=== PATIENT | male | born 1935 | race Caucasian/White ===

== ENCOUNTER 2018-11-23 09:05 | Inpatient (IN) ==
[2018-11-23] MEDS ORDERED: NS 1000 ML 1,000 ML ONE ×3 (09:08→12:25)
[2018-11-23] MEDS ORDERED: D50W ABBOJECT SYR IV ONE (09:16)
[2018-11-23] MEDS ORDERED: NS 1000 ML 1,000 ML IV ONE ×2 (09:16→09:20)
--- NOTE | 2018-11-23 09:26 | DR.GENAD ---
HPI - Complaint/Symptoms Chief Complaint Doctors Comments: Patient called family member stating he was feeling weak and has problem walking with shoulder pain. Family member states he stays in a trailer next to them and he has seen two cancer doctors this week and has been cleared to start his chemotherapy for lung cancer. States he has a cancer in his right upper lobe and no where else shows cancer presently. States he is a patient of Dr. Ray and is usually on two liters of oxygen at home but he puts it on 3 liters at home. Family member states she gave him a breathing treatment before coming to the emergency room. Patient denies chest pain cold or cough. Family states his heart rate is usually around 60 and he was taking Metropolol 50mg but his blood pressure was to low and they placed him on 12.5mg and she gave all his medicines this morning.. Patient is complaining of shoulder pain. Patient's daughter states he just finished prednisone dose pack yesterday. He was in the hospital in [place] and they found a pneumonia on the left side of his lungs and they put him on Levaquin and Prednisone and he just finished both of them. - Nurses notes reviewed Nurses Notes Review: Yes - Source History Provided: Patient, Family Member - Mode of Arrival Mode of Arrival: Wheelchair - Timing Came on: Gradually - Duration Duration: Constant How lon Duration: Days - Location Location: left shoulder pain - Severity Severity: Moderate - Modifying Factors Worsens:: movement Improves:: nothing PMH - PMH Past Medical History: COPD Past Surgical History: Yes Surgical History: Cholecystectomy ROS - Review of Systems Constitutional: No Symptoms Reported, Weakness, Loss of Appetite Eyes: No Symptoms Reported ENTM: No Symptoms Reported Respiratoy: No Symptoms Reported, Short of Breath, Wheezing Cardiovascular: No Symptoms Reported, Palpitations. negative: See HPI, Chest Pain, Edema, Syncope, Cyanosis, Skin Mottling, Other Gastrointestinal/Abdominal: No Symptoms Reported Genitourinary: No Symptoms Reported Neurological: No Symptoms Reported, Weakness, Problems Walking Musculoskeletal: No Symptoms Reported Integumentary: No Symptoms Reported Hematologic/Lymphatic: No Symptoms Reported, Anemia Endocrine: No Symptoms Reported Psychiatric: No Symptoms Reported PE - General Limitations: Physical Limitation General Appearance: Lethargic, In Distress (moderate) - Head Head Exam: Normal Inspection, Atraumatic, Normocephalic - Eyes Eye exam: Normal Appearance, PERRL, EOMI. negative: Scleral Icterus, Conjunctival Injection, Nystagmus, Miosis, Mydrasis, Periorbital Swelling, Periorbital Tenderness, Other - ENT ENT Exam: Normal Exam, Normal Oropharynx, Normal External Ear Exam, Mucous Membranes Moist, TM's Normal Bilaterally External Ear Exam: Normal External Inspection TM/Canal Exam: Bilateral Normal Nose Exam: Normal Nose Exam Mouth Exam: Normal Inspection. negative: Drooling, Trismus, Lip Swelling, Tongue Elevation, Tongue Swelling, Laceration, Other Throat Exam: Normal Inspection - Neck Neck Exam: Normal Inspection, Full ROM, Trachea Midline. negative: Tenderness, Meningismus, Lymphadenopathy, Thyromegaly, Other - Chest Chest Inspection: Normal Inspection, Symmetric Chest Wall Rise. negative: Tenderness, Rash, Abscess, Other - Respiratory Respiratory Exam: Normal Lung Sounds Bilat, Prolonged Expiratory Phase Respiratory Exam: Bilateral Clear to Auscultation, Bilateral Decreased Breath Sounds - Cardiovascular Cardiovascular Exam: Regular Rate, Normal Rhythm, Tachycardia, Irregular Rhythm, Normal Heart Sounds, Systolic Murmur - Abdominal Exam Abdominal Exam: Normal Inspection, Normal Bowel Sounds, Soft. negative: Distention, Tenderness, Guarding, Rebound, Rigidity, Dimnished Bowel Sounds, Hyperactive Bowel Sounds, Hypoactive Bowel Sounds, Organomegaly, Trauma, Incision, Ascites, Mass, Bruit, Pulsatile Mass, Hernia, Other Abdominal Tenderness: negative: RUQ, RLQ, LUQ, LLQ, Epigastrium, Suprapubic, Diffuse, Mild, Moderate, Severe, Other - Extremities Extremities Exam: Normal Inspection, Full ROM, Normal Capillary Refill. negative: Tenderness, Edema, Joint Swelling, Calf Tenderness, Other - Back Back Exam: Normal Inspection, Full ROM - Neurologic Neurological Exam: Alert, Oriented X3, CN II-XII Intact, Reflexes Normal. negative: Normal Gait (gait not tested) - Psychiatric Psychiatric Exam: Normal Affect, Normal Mood. negative: Depressed, Agitated, Anxious, Flat Affect, Manic, Homicidal Ideation, Suicidal Ideation, Other - Skin Skin Exam: Warm, Dry, Intact, Normal Color, Pallor - Vital Signs Vitals: Temperature 97.7 F Pulse Rate 143 Respiratory Rate 19 Blood Pressure [Left Arm] 162/74 Blood Pressure 124/63 O2 Sat by Pulse Oximetry 92 Course - Reevaluation 1st: Improved - Consultation Called: 10:35 Call Returned: 11:08 (Dr. Benavides to admit) - Education/Counseling Education/Counseling: Patient, Family Educated On: Treatment, Diagnosis, Needs for Follow Up ROR - Labs Reviewed Laboratory Results Reviewed?: Yes (All labs and x-ray results reviewed and discussed with patient and family m) Result Diagrams: 11/23/18 09:15 11/23/18 09:15 - XRAY XRAY Interpreted by: Radiologist (CXR: Stable chest with right upper lobe mass.) - EKG Rate: 140 [place]: Normal Rhythm: ST Block: None Hypertrophy: None ST: Nonsp - Labs Reviewed Laboratory: WBC 31.2 X10^3/uL (3.6-10.0) H* 11/23/18 09:15 RBC 3.61 X10^6/uL (4.7-6.0) L 11/23/18 09:15 Hgb 11.0 g/dL (13.5-18.0) L 11/23/18 09:15 Hct 33.7 % (42.0-54.0) L 11/23/18 09:15 MCV 93.2 fL (80.0-100.0) 11/23/18 09:15 MCH 30.5 pg (27.0-34.0) 11/23/18 09:15 MCHC 32.7 g/dL (33.0-35.0) L 11/23/18 09:15 RDW 14.3 % (11.6-16.5) 11/23/18 09:15 Plt Count 383 X10^3/uL (150.0-450.0) 11/23/18 09:15 Plt Count Comment Adequate (ADEQUATE) 11/23/18 09:15 MPV 7.4 fL (7.4-11.0) 11/23/18 09:15 Neut % (Auto) 91.0 % (42.0-75.0) H 11/23/18 09:15 Lymph % (Auto) 4.3 % (21.0-51.0) L 11/23/18 09:15 [place] % (Auto) 4.5 % (0.0-13.0) 11/23/18 09:15 Eos % (Auto) 0.0 % (0.9-2.9) L 11/23/18 09:15 Baso % (Auto) 0.2 % (0.2-1.0) 11/23/18 09:15 Neut # (Auto) 28.4 x10^3/uL (2.2-4.8) H 11/23/18 09:15 Lymph # (Auto) 1.3 X10^3/uL (1.3-2.9) 11/23/18 09:15 [place] # (Auto) 1.4 x10^3/uL (0.3-0.8) H 11/23/18 09:15 Eos # (Auto) 0.0 x10^3/uL (0.0-0.2) 11/23/18 09:15 Baso # (Auto) 0.1 X10^3/uL (0.0-0.1) 11/23/18 09:15 Absolute Nucleated RBC 0.0 /100WBC 11/23/18 09:15 Total Counted 100 11/23/18 09:15 Neutrophils % (Manual) 87 % (39-76) H 11/23/18 09:15 Lymphocytes % (Manual) 9 % (13-43) L 11/23/18 09:15 Monocytes % (Manual) 4 % (4-9) 11/23/18 09:15 Plt Morphology Comment Normal (NORMAL) 11/23/18 09:15 RBC Morphology Normal (NORMAL) 11/23/18 09:15 INR Target Range - 11/23/18 09:15 INR 0.99 (0.8-1.3) 11/23/18 09:15 APTT 26.4 SECONDS (22.9-36.5) 11/23/18 09:15 PTT Comment - 11/23/18 09:15 Sodium 137 mmol/L (136-145) 11/23/18 09:15 Corrected Sodium 137 mmol/L (136-145) 11/23/18 09:15 Potassium 4.5 mmol/L (3.5-5.1) 11/23/18 09:15 Chloride 99 mmol/L (98-107) 11/23/18 09:15 Carbon Dioxide 28.0 mmol/L (21-32) 11/23/18 09:15 BUN 39 mg/dL (7-18) H 11/23/18 09:15 Creatinine 1.75 mg/dL (0.70-1.30) H 11/23/18 09:15 Est GFR (MDRD) Af Amer 48 (>60) L 11/23/18 09:15 Est GFR (MDRD) Non-Af 40 (>60) L 11/23/18 09:15 Glucose 113 mg/dL (65-99) H 11/23/18 09:15 POC Glucose (mg/dL) 97 mg/dL (65-99) 11/23/18 10:15 Lactic Acid 3.2 mmol/L (0.4-2.0) H 11/23/18 10:05 Calcium 9.7 mg/dL (8.5-10.1) 11/23/18 09:15 Corrected Calcium TNP 11/23/18 09:15 Magnesium 2.0 mg/dL (1.7-2.9) 11/23/18 09:15 Total Bilirubin 0.90 mg/dL (0.2-1.0) 11/23/18 09:15 AST 29 Units/L (15-37) 11/23/18 09:15 ALT 33 Units/L (12-78) 11/23/18 09:15 Alkaline Phosphatase 67 Units/L (46-116) 11/23/18 09:15 Creatine Kinase 62 Units/L (39-308) 11/23/18 09:15 CK-MB (CK-2) 1.4 ng/mL (0-4.0) 11/23/18 09:15 CK/CKMB % Calc 2.3 % (<4) 11/23/18 09:15 Troponin I 0.04 ng/mL (0-1.5) 11/23/18 09:15 Total Protein 7.3 g/dL (6.4-8.2) 11/23/18 09:15 Albumin 3.5 g/dL (3.4-5.0) 11/23/18 09:15 Globulin 3.8 g/dL (2.5-4.5) 11/23/18 09:15 Albumin/Globulin Ratio 0.9 Ratio (1.1-2.1) L 11/23/18 09:15 Specimen Type Catherized urine 11/23/18 10:34 Urine Color Yellow (YELLOW) 11/23/18 10:34 Urine Appearance Clear (CLEAR) 11/23/18 10:34 Urine pH 6.0 (5.0 - 8.0) 11/23/18 10:34 Ur Specific [place] 1.015 (1.000-1.030) 11/23/18 10:34 Urine Protein Negative (NEGATIVE) 11/23/18 10:34 Urine Glucose (UA) Negative (NEGATIVE) 11/23/18 10:34 Urine Ketones Negative (NEGATIVE) 11/23/18 10:34 Urine Occult Blood Negative (NEGATIVE) 11/23/18 10:34 Urine Nitrite Negative (NEGATIVE) 11/23/18 10:34 Urine Bilirubin Negative (NEGATIVE) 11/23/18 10:34 Urine Urobilinogen Normal (NORMAL) 11/23/18 10:34 Ur Leukocyte Esterase Negative (NEGATIVE) 11/23/18 10:34 - Diagnosis Discharge Problem: SIRS (systemic inflammatory response syndrome), Mass of upper lobe of right lung, Atrial fibrillation Hypotension Qualifiers: Hypotension type: unspecified hypotension type Qualified Code(s): I95.9 - Hypotension, unspecified Atrial flutter Qualifiers: Atrial flutter type: unspecified Qualified Code(s): I48.92 - Unspecified atrial flutter COPD (chronic obstructive pulmonary disease) Qualifiers: COPD type: chronic bronchitis Chronic kidney disease (CKD) Qualifiers: Chronic kidney disease stage: stage 3 (moderate) Qualified Code(s): N18.3 - Chronic kidney disease, stage 3 (moderate) - Discharge Plan Disposition: 09 ADMITTED INPATIENT Condition: Critical - Follow ups/Referrals Follow ups/Referrals: SHARI UMANZOR [Primary Care Provider] - 3 days - Instructions
[2018-11-23] MEDS ORDERED: CARDIZEM INJ 125 MG VIAL 125 MG in NS 100 ML IV 100 ML IV PRN (09:30)
[2018-11-23] MEDS ORDERED: CARDIZEM INJ 50 MG VIAL IVP ONE ×2 (09:31→10:45)
[2018-11-23 09:37] LABS: BASOPHILS # (AUTO) 0.1 X10^3/uL (0.0-0.1); BASOPHILS % (AUTO) 0.2 % (0.2-1.0); HEMATOCRIT 33.7 % (42.0-54.0); LYMPHOCYTES # (AUTO) 1.3 X10^3/uL (1.3-2.9); LYMPHOCYTES % (AUTO) 4.3 % (21.0-51.0); MEAN CORPUSCULAR HEMOGLOBIN 30.5 pg (27.0-34.0); MEAN CORPUSCULAR HGB CONC 32.7 g/dL (33.0-35.0); MEAN CORPUSCULAR VOLUME 93.2 fL (80.0-100.0); MEAN PLATELET VOLUME 7.4 fL (7.4-11.0); MONOCYTES # (AUTO) 1.4 x10^3/uL (0.3-0.8); MONOCYTES % (AUTO) 4.5 % (0.0-13.0); NEUTROPHILS # (AUTO) 28.4 x10^3/uL (2.2-4.8); PLATELET COUNT 383 X10^3/uL (150.0-450.0); RED BLOOD COUNT 3.61 X10^6/uL (4.7-6.0); RED CELL DISTRIBUTION WIDTH 14.3 % (11.6-16.5)
[2018-11-23 09:42] LABS: BLOOD UREA NITROGEN 39 mg/dL (7-18); CALCIUM 9.7 mg/dL (8.5-10.1); CHLORIDE 99 mmol/L (98-107); COR NA(FOR HYPERGLY) 137 mmol/L (136-145); CREATININE 1.75 mg/dL (0.70-1.30); SODIUM 137 mmol/L (136-145); TROPONIN I 0.04 ng/mL (0-1.5); eGFR NON BLACK RACES 40 (>60)
[2018-11-23 09:46] LABS: ALANINE AMINOTRANSFERASE 33 Units/L (12-78); ALBUMIN 3.5 g/dL (3.4-5.0); ALKALINE PHOSPHATASE 67 Units/L (46-116); ASPARTATE AMINO TRANSFERASE 29 Units/L (15-37); CKMB % 2.3 % (<4); CREATINE KINASE 62 Units/L (39-308); CREATINE KINASE MB 1.4 ng/mL (0-4.0); TOTAL PROTEIN 7.3 g/dL (6.4-8.2); WHITE BLOOD COUNT 31.2 X10^3/uL (3.6-10.0)
[2018-11-23] MEDS ORDERED: ROCEPHIN VIAL 1 GRAM IVP ONE (09:48)
[2018-11-23] MEDS ORDERED: DOPAMINE IV PREMIX 400 MG/250 ML 400 MG/250 ML BAG IV ONE ×2 (09:49→10:10)
[2018-11-23] MEDS ORDERED: VANCOMYCIN HCL 1 GM VIAL 1 G in D5W 250 ML IV 250 ML IV ONE (09:49)
[2018-11-23 09:50] LABS: PLATELET MORPHOLOGY COMMENT NORMAL (NORMAL)
[2018-11-23] MEDS ORDERED: VANCOMYCIN HCL 1 GM VIAL ONE (09:51)
[2018-11-23] MEDS ORDERED: NS 250 ML IV 250 ML IV ONE (09:51)
[2018-11-23] MEDS ORDERED: LEVAQUIN PREMIX IV 500 MG 500 MG/100 ML BAG IV ONE ×2 (09:53→15:05)
[2018-11-23] MEDS ORDERED: SOLU-Medrol 125 MG VIAL IVP ONE (09:53)
--- NOTE | 2018-11-23 09:55 | RAD ---
HISTORY: Shortness of breath Study: Single-view chest Comparison: 11/03/2018 Findings: The trachea is midline. The cardiac silhouette is stable. The lungs are stable with a right upper lobe mass again noted. Stable chronic changes are also noted as well.. The bony thorax is unremarkable. IMPRESSION: 1. Stable chest. Reported By:
[2018-11-23] MEDS ORDERED: SOLU-Medrol 125 MG VIAL ONE (09:56)
[2018-11-23] MEDS ORDERED: LR 1000 ML IV 1,000 ML IV SCH (10:00)
[2018-11-23] MEDS ORDERED: CARDIZEM INJ 50 MG VIAL ONE (10:49)
[2018-11-23 10:55] LABS: BILIRUBIN,URINE NEGATIVE (NEGATIVE); BLOOD/HEMOGLOBIN,URINE NEGATIVE (NEGATIVE); GLUCOSE, URINE NEGATIVE (NEGATIVE); KETONES,URINE NEGATIVE (NEGATIVE); LEUKOCYTE ESTERASE ,URINE NEGATIVE (NEGATIVE); NITRITES,URINE NEGATIVE (NEGATIVE); PROTEIN,URINE NEGATIVE (NEGATIVE); UROBILINOGEN,URINE NORMAL (NORMAL)
[2018-11-23 11:04] LABS: APPEARANCE,URINE CLEAR (CLEAR); COLOR,URINE YELLOW (YELLOW)
[2018-11-23] MEDS ORDERED: TOBRAMYCIN SULFATE 80 MG in NS 100 ML IV 100 ML IV ONE (11:12)
[2018-11-23] MEDS ORDERED: DOPAMINE IV PREMIX 400 MG/250 ML 400 MG/250 ML BAG IV PRN (11:50)
--- NOTE | 2018-11-23 12:25 | DR.H&P ---
H&P - History & Physical for Day of: H&P Date: 11/23/18 - Chief Complaint Chief Complaint: SOB, WEAKNESS - History of Present Illness History of Present Illness: 83 WM ER ADMISSION WITH CO "CANNOT WALK" DUE TO SEVERE WEAKNESS. PT'S DAUGHTER IS [employer] AND STATES PT CALLED THIS AM CO CANNOT WALK WITH WEAKNESS. PT WAS CLAMMY AND PALE ON HER ARRIVAL, SHE WAS UNABLE TO OBTAIN BLOOD PRESSURE. PT BROUGHT TO ER POV. PT WAS IN AFIB WITH HYPOTENSION ON ARRIVAL, NO HX OF CARDIAC DISEASE. PT WAS RECENTLE DX WITH SQUAMOUS CELL CARCINOMA. PT DOES TAKE METOPROLOL FOR BP AND RECEIVED IT THIS AM. PT PLACED ON BIPAP AND DOPAMINE IN ER. ADMITTED TO ICU FOR TREATMENT OF ACUTE ONSET AFIB, RESP DISTRESS, HYPOTENSION. 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) - Social History Does patient currently use any type of tobacco product: No Have you used tobacco products in the last 12 months: No Does any household member use tobacco: No Alcohol Use: None - Medications Home Medications: Penicillins Allergy (Verified 11/23/18 09:21) pneumococcal vaccine [From Pneumovax 23] Allergy (Verified 11/23/18 09:21) CONTINUE taking the following medications aspirin 81 mg PO DAILY 11/23/18 [History] cyproheptadine 4 mg PO BID 11/23/18 [History] escitalopram oxalate 10 mg PO DAILY 11/23/18 [History] finasteride 5 mg PO DAILY 11/23/18 [History] hydrocodone-acetaminophen [E[place]] 1 tab PO Q6H PRN 11/23/18 [History] lansoprazole 30 mg PO AC 11/23/18 [History] levofloxacin [Levaquin] 750 mg PO DAILY 11/23/18 [History] - Review of Systems Constitutional: Weakness Eyes: No Symptoms Reported ENT: No Symptoms Reported Respiratory: Shortness of Breath, SOB with Excertion, Sputum Cardiovascular: Palpitations, Light Headedness Gastrointestinal: No Symptoms Reported Genitourinary: No Symptoms Reported Musculoskeletal: Shoulder Pain Skin: No Symptoms Reported Neurological: Weakness - Physical Exam Vital Signs: Temperature 97.7 F Pulse Rate 118 Respiratory Rate 22 Blood Pressure [Left Arm] 162/74 Blood Pressure 92/59 O2 Sat by Pulse Oximetry 95 Oriented: Normal Eyes: Normal Ear: Normal Nose: Normal Throat: Dry Respiratory: Diminished Throughout Cardiovascular: Tachycardia, Irregular. negative: Edema Auscultation: Bowel Sounds: Normal Palpation: Normal Tenderness: Normal Skin: Decreased [place] Musculoskeletal: Right, Shoulder Psychiatric: Anxiety Affect: Anxious Speech Pattern: Clear, Appropriate - Assessment/Plan (1) Atrial fibrillation Status: Acute Plan: ADMIT ICU, SERIAL CE AND EKG. CONTINUE SUPPLEMENTAL O2. CARDIAC JUNIOR TORING. CXR ON ADMISSION, RESP THERAPY BIPAP PRN. BP CONTROL, DOPAMINE TITRATE, MON STRICT I & OS. ABG, VERIFY HOME MEDICATION (2) Dyspnea Qualifiers: Dyspnea type: shortness of breath Qualified Code(s): R06.02 - Shortness of breath; R06.00 - Dyspnea, unspecified; R06.01 - Orthopnea Status: Acute (3) Mass of upper lobe of right lung Status: Acute (4) COPD (chronic obstructive pulmonary disease) Qualifiers: COPD type: chronic bronchitis Status: Acute (5) Hypotension Qualifiers: Hypotension type: unspecified hypotension type Qualified Code(s): I95.9 - Hypotension, unspecified Status: Acute - Allergies Allergies/Adverse Reactions: Allergies Allergy/AdvReac Type Severity Reaction Status Date / Time Penicillins Allergy Verified 11/23/18 09:21 pneumococcal vaccine Allergy Verified 11/23/18 09:21 [From Pneumovax 23]
[2018-11-23] MEDS: NS 1000 ML 1,000 ML IV SCH ×3 (12:32→18:30)
[2018-11-23] MEDS: XOPENEX 1.25 MG/3 ML NEBULE NEB SCH ×2 (12:35→17:26)
[2018-11-23] MEDS ORDERED: DUONEB 0.5 MG/3 MG NEB SCH (13:00)
[2018-11-23] MEDS ORDERED: NORCO 10/325 TAB ONE (13:30)
[2018-11-23] MEDS ORDERED: MORPHINE SULFATE INJ 2 MG INJ IVP PRN (13:35)
[2018-11-23] MEDS: NORCO 10/325 TAB PO PRN ×2 (13:40→19:34)
[2018-11-23 14:54] VITALS: BMI 25.3
[2018-11-23] MEDS ORDERED: MERREM VIAL 1,000 MG in NS 100 ML IV + SPIKE MINIBAG* 100 ML IV SCH (15:00)
[2018-11-23 15:21] LABS: BASOPHILS % (AUTO) 0.1 % (0.2-1.0); HEMATOCRIT 31.7 % (42.0-54.0); HEMOGLOBIN 10.5 g/dL (13.5-18.0); LYMPHOCYTES # (AUTO) 0.7 X10^3/uL (1.3-2.9); LYMPHOCYTES % (AUTO) 2.5 % (21.0-51.0); MEAN CORPUSCULAR HEMOGLOBIN 30.7 pg (27.0-34.0); MEAN CORPUSCULAR HGB CONC 33.1 g/dL (33.0-35.0); MEAN CORPUSCULAR VOLUME 92.8 fL (80.0-100.0); MEAN PLATELET VOLUME 7.3 fL (7.4-11.0); MONOCYTES # (AUTO) 1.6 x10^3/uL (0.3-0.8); MONOCYTES % (AUTO) 5.6 % (0.0-13.0); NEUTROPHILS # (AUTO) 26.1 x10^3/uL (2.2-4.8); NEUTROPHILS % (AUTO) 91.8 % (42.0-75.0); PLATELET COUNT 266 X10^3/uL (150.0-450.0); RED BLOOD COUNT 3.42 X10^6/uL (4.7-6.0); RED CELL DISTRIBUTION WIDTH 14.2 % (11.6-16.5); WHITE BLOOD COUNT 28.5 X10^3/uL (3.6-10.0)
[2018-11-23 15:31] LABS: ALANINE AMINOTRANSFERASE 30 Units/L (12-78); ALBUMIN 3.1 g/dL (3.4-5.0); ALKALINE PHOSPHATASE 61 Units/L (46-116); ASPARTATE AMINO TRANSFERASE < 6 Units/L (15-37); BLOOD UREA NITROGEN 38 mg/dL (7-18); CALCIUM 9.1 mg/dL (8.5-10.1); CARBON DIOXIDE 26.8 mmol/L (21-32); CHLORIDE 102 mmol/L (98-107); COR CA(FOR HYPOALB) 9.8 mg/dL (8.5-10.1); COR NA(FOR HYPERGLY) 138 mmol/L (136-145); CREATININE 1.52 mg/dL (0.70-1.30); SODIUM 138 mmol/L (136-145); TOTAL PROTEIN 6.7 g/dL (6.4-8.2); eGFR NON BLACK RACES 47 (>60)
[2018-11-23 15:47] LABS: PLATELET MORPHOLOGY COMMENT NORMAL (NORMAL)
[2018-11-23 16:04] LABS: CKMB % 3.4 % (<4); TROPONIN I 0.58 ng/mL (0-1.5)
[2018-11-23 16:11] LABS: CREATINE KINASE MB 5.7 ng/mL (0-4.0)
[2018-11-23] MEDS ORDERED: LANOXIN INJ ONE (16:17)
[2018-11-23] MEDS ORDERED: LANOXIN INJ IVP SCH (17:00)
[2018-11-23] MEDS ORDERED: HEPARIN SODIUM INJ 5000 UNITS IVP ONE (17:19)
[2018-11-23] MEDS ORDERED: HEPARIN SODIUM IN D5W 25,000 UNITS/500 ML BAG IV PRN (17:41)
[2018-11-23] MEDS ORDERED: ATIVAN TAB 0.5 MG PO ONE (18:20)
[2018-11-23 19:35] VITALS: BP 91/62
[2018-11-23] MEDS ORDERED: TOBRAMYCIN SULFATE 80 MG in NS 100 ML IV 98 ML IV SCH (22:00)
[2018-11-24] MEDS ORDERED: LEVAQUIN PREMIX IV 500 MG 500 MG/100 ML BAG IV SCH (09:00)
[2018-11-24] MEDS ORDERED: LEVAQUIN PREMIX IV 750 MG 750 MG/150 ML BAG IV SCH (09:00)
[2018-11-24] MEDS ORDERED: SOLU-Medrol 40 MG VIAL IVP SCH (09:00)
[2018-11-24] MEDS ORDERED: PHARMACY COMMENT IV NR (21:30)
== END 2018-11-23 19:45 | disposition short-term general hospital (02) | DRG 309 ==
LOC: ER 09:08 → ICU 11:21
PROVIDERS: ADMIT Internal Medicine; ATTEND Internal Medicine
DX: I48.91 Unspecified atrial fibrillation; J44.9 Chronic obstructive pulmonary disease, unspecified; R53.1 Weakness; I95.89 Other hypotension; R94.31 Abnormal electrocardiogram [ECG] [EKG]; C34.91 Malignant neoplasm of unspecified part of right bronchus or lung; R91.8 Other nonspecific abnormal finding of lung field; N18.3 Chronic kidney disease, stage 3 (moderate); R06.02 Shortness of breath
CPT/HCPCS: 36415; 51702; 71010; 71045; 80053; 81003; 82550; 82553; 83605; 83735; 84484; 85025; 85610; 85730; 87040; 93005; 94640; 94660; 96365; 96367; 96374; 96375; 99284; 99285; A4222; A4618; A7030; J1160; J1265; J1644; J1956; J2185; J2930; J3260; J3370; J3490; J7030; J7050; J7120